=== PATIENT | male | born 2000 | race Hispanic/Latino ===

== ENCOUNTER 2021-06-05 13:48 | Emergency (ER) | payer OTHER ==
[~2021-06-05] VITALS: Ht 170.2 cm; Wt 67.4 kg
[2021-06-05 15:11] LABS: BASO % 0.2 % (0.0-1.0); HEMATOCRIT 46.5 % (42.0-52.0); HEMOGLOBIN 15.5 g/dl (13.5-17.5); LYMPH % 11.8 % (24.0-44.0); MEAN CORPUSCULAR HGB CONC 33.3 g/dl (32.0-36.5); MEAN CORPUSCULAR VOLUME 90.1 fl (80.0-96.0); MONO # 0.3 10^3/uL (0.0-0.8); NEUTROPHILS # 7.1 10^3/uL (1.5-8.5); NEUTROPHILS % 83.5 % (36.0-66.0); PLATELET COUNT, AUTOMATED 222 10^3/uL (150-450); RED BLOOD COUNT 5.16 10^6/uL (4.30-6.10); WHITE BLOOD COUNT 8.5 10^3/uL (4.0-10.0)
[2021-06-05 15:50] LABS: ALBUMIN 4.6 GM/DL (3.2-5.2); ALT/SGPT 24 U/L (12-78); BILIRUBIN,DIRECT < 0.1 MG/DL (0.0-0.2); BILIRUBIN,TOTAL 1.1 MG/DL (0.2-1.0); BLOOD UREA NITROGEN 7 MG/DL (7-18); CALCIUM LEVEL 8.9 MG/DL (8.5-10.1); CARBON DIOXIDE LEVEL 23 MEQ/L (21-32); CHLORIDE LEVEL 105 MEQ/L (98-107); CREATININE FOR GFR 0.94 MG/DL (0.70-1.30); GLOMERULAR FILTRATION RATE > 60.0 (>60); GLUCOSE, FASTING 155 MG/DL (70-100); LIPASE 78 U/L (73-393); POTASSIUM SERUM 5.2 MEQ/L (3.5-5.1); SODIUM LEVEL 136 MEQ/L (136-145); TOTAL PROTEIN 8.2 GM/DL (6.4-8.2)
[2021-06-05] MEDS ORDERED: ONDANSETRON 4MG/2ML VIAL IV ONE (18:35)
--- NOTE | 2021-06-05 19:10 | REP ---
INDICATION: abd pain. COMPARISON: None. TECHNIQUE: PA chest, two view abdomen FINDINGS: PA chest: Lungs are adequately inflated. There is no infiltrate, effusion, atelectasis or mass. The heart, mediastinal and hilar contours are normal. The aorta and airway are intact. Bony thorax is unremarkable. There is no free air under the diaphragm. Flat upright abdomen: There is a nonspecific gas pattern a dilated loop of small bowel in the upper mid abdomen and a few small bowel loops with gas that are not dilated also seen below it. In a nonspecific pattern. I do not see definite air-fluid levels. There is no free air. There is a calcific density projecting just above the right iliac crest on the supine view which is not seen on the upright view, likely bowel content or other that is obscured by the iliac wing on the upright view. No abnormal calcification over the renal fossa the, expected course of the ureters or in the true pelvis. Sacralization of the transverse processes of L5 which are fused with the superior aspect of S1, an anatomic variation. IMPRESSION: 1. Nonspecific gas pattern with a mildly dilated small bowel loops centrally in the upper abdomen and a only a few other small bowel loops with gas and no distension. No air-fluid levels. This may reflect some focal ileus or gastroenteritis. Scattered gas and stool in the colon without dilatation. No definitive plain film sign of obstruction. No free air. 2. Negative PA chest. <Electronically signed by Chang Goldsmith > 06/05/21 [id number]
[2021-06-05] MEDS ORDERED: ONDA4TAB6 PO (19:33)
[2021-06-05] MEDS ORDERED: ONDANSETRON 4 MG ORAL DISINTEGRATING TAB PO ONE (19:35)
[2021-06-05 19:39] VITALS: BP 133/79
== END 2021-06-05 19:56 | disposition home or self-care (01) ==
LOC: M ED 13:48
DX: R10.9 Unspecified abdominal pain (principal); R11.2 Nausea with vomiting, unspecified
CPT/HCPCS: 74021; 80048; 80076; 81001; 83690; 85025; 96374; 99284; J2405; Q0162